=== PATIENT | female | born 1990 | race Hispanic/Latino ===

== ENCOUNTER 2019-05-18 14:39 | Emergency (ER) | payer SELFPAY ==
[2019-05-18] MEDS ORDERED: Diazepam 5 MG TAB ONE (15:48)
[2019-05-18 15:51] LABS: Pregnancy Test - Urine (BHCG) Negative (Negative); Pregu Control Background? CLEAR/WHITE (CLR/WHITE); Pregu Control Bar Appear? YES (CONTROL BAR); Specific Gravity 1.025 (1.002-1.036)
[2019-05-18] MEDS ORDERED: Ketorolac Tromethamine 60 MG/2 ML VIAL ONE (16:11)
== END 2019-05-18 16:40 | disposition home or self-care (01) ==
LOC: SCSER 14:39
DX: M62.830 Muscle spasm of back (principal)
CPT/HCPCS: 81025; 96372; 99283; J1885

== ENCOUNTER 2024-06-29 18:34 | Emergency (ER) | payer SELFPAY ==
[2024-06-29] MEDS ORDERED: Acetaminophen 325 MG TAB ONE (19:08)
[2024-06-29] MEDS ORDERED: Acetaminophen 500 MG TAB ONE (19:09)
[2024-06-29 19:29] LABS: #Basophils 0.06 10x3/uL (0.0-0.2); %Basophils 0.6 % (0.0-1.0); %Eosinophils 3.9 % (0.0-10.0); %Lymphocytes 26.5 % (21.0-51.0); %Neutrophils 59.8 % (42.0-75.0); Hematocrit 38.6 % (36.0-47.0); Hemoglobin 13.7 g/dL (12.0-16.0); Mean Corpuscular HGB CONC 35.5 g/dL (32.0-36.0); Mean Corpuscular Hemoglobin 27.1 pg (27.0-31.0); Mean Corpuscular Volume 76.3 fL (78.0-98.0); Mean Platelet Volume 11.6 fL (7.4-10.4); Platelet Count 376 10x3/uL (130-400); RBC Distribution Width 13.2 % (11.5-14.5); Red Blood Cell (RBC) Count 5.06 mill/uL (4.20-5.40)
[2024-06-29 19:47] LABS: ALT (SGPT) 20 U/L (8-55); AST (SGOT) 14 U/L (5-34); Albumin 3.4 g/dL (3.5-5.0); Alkaline Phosphatase 83 U/L (40-110); Anion Gap 14 mmol/L (10-20); BUN (Urea Nitrogen) 9 mg/dL (7.0-18.7); Bilirubin, Total 0.5 mg/dL (0.2-1.2); CK (CPK) 120 U/L (29-168); Calc. Creatinine Clearance 0 mL/min (70-130); Calcium 8.8 mg/dL (7.8-10.44); Carbon Dioxide 19 mmol/L (22-29); Chloride 112 mmol/L (98-107); Estimated GFR 117; Globulin 3.8 g/dL (2.4-3.5); Glucose 119 mg/dL (70-105); Potassium 3.8 mmol/L (3.5-5.1); Protein, Total 7.2 g/dL (6.0-8.3); Sodium 141 mmol/L (136-145)
== END 2024-06-29 20:48 | disposition home or self-care (01) ==
LOC: ERS 18:34
DX: S82.852A Displaced trimalleolar fracture of left lower leg, initial encounter for closed fracture (principal); S83.112A Anterior subluxation of proximal end of tibia, left knee, initial encounter; S92.352A Displaced fracture of fifth metatarsal bone, left foot, initial encounter for closed fracture; Z55.6 Problems related to health literacy; W01.0XXA Fall on same level from slipping, tripping and stumbling without subsequent striking against object, initial encounter
CPT/HCPCS: 36415; 80053; 82550; 85025; 99283